=== PATIENT | female | born 1975 | race Caucasian/White ===

== ENCOUNTER → 2016-09-07 | Day surgery (SDC) | payer OTHER, BC ==
[~2016-09-07] MED LIST: CLINDAMYCIN PHOS 600 MG/4 ML VIAL ONE; KETOROLAC TROMETHAMINE 30 MG/ML (IVP) VIAL IV PUSH ONE; LACTATED RINGER'S 1000 ML INJ 1,000 ML ONE; METHYLERGONOVINE MALEATE 0.2 MG/ML VIAL ONE; MIDAZOLAM HCL 2 MG/2 ML VIAL ONE; ONDANSETRON HCL 4 MG/2 ML VIAL IV PUSH ONE; PROPOFOL 200 MG/20 ML AMP IV ONE; SODIUM CHLORIDE 0.9% SOLN 100 ML (PAB) BAG IV ONE
--- NOTE | 2016-09-08 16:16 | MP ---
cc: LEWIS ANDERSON M.D. DATE OF SURGERY 09/07/2016 PREOPERATIVE DIAGNOSIS Missed at 6 weeks gestation, request for IUD placement post procedure. PROCEDURE Dilatation and curettage with suction, placement of IUD Mirena intrauterine device. POSTOPERATIVE DIAGNOSIS Missed at 6 weeks gestation, request for IUD placement post procedure. SURGEON Lewis Anderson MD ANESTHESIA General with LMA. ESTIMATED BLOOD LOSS None. DRAINS None. OPERATIVE FINDINGS The patient had midline uterus. Uterine sounded to 8 cm. PATHOLOGY SPECIMEN Included products of conception. INDICATIONS FOR PROCEDURE Patient with followed for missed by ultrasound. The patient failed to pass products of conception naturally and elected for D&C with suction. The patient's maternal blood type is Rh positive. DESCRIPTION OF PROCEDURE The patient was taken to the operating room, under general anesthesia had an airway secured. She previously received clindamycin 600 milligrams IV. She was carefully positioned dorsolithotomy position using candy-cane stirrups with sequential placed on lower extremities for VTE prophylaxis. After she was carefully prepped and draped, a time-out was conducted and agreed by all present in the room. The cervix was easily identified and secured with a single-tooth tenaculum anteriorly. The uterine sound measured 8 centimeters. The cervix was soft. The #8 suction curette was used to evacuate the products of conception without complication. No perforation. This was confirmed by following with a handheld curette to ensure that there were no retained tissue specimens. No active bleeding was noted. After evacuation of the endometrial cavity the Mirena IUD was then easily inserted, placed at the uterine fundus and deployed without difficulty. The strings were trimmed. At the completion of the case there was no active bleeding. The patient received Methergine 0.2 mg to secure hemostasis post curettage. At the end of the case final count was correct. The patient was stable. She is taken to recovery room on room air. Lewis Anderson MD [id number] /12:42 PM /4:05 PM
== END | disposition home or self-care (01) ==
LOC: ESDC 10:34
PROVIDERS: ATTEND Obstetrics & Gynecology
DX: O02.1 Missed abortion (principal); Z30.430 Encounter for insertion of intrauterine contraceptive device
CPT/HCPCS: 00940; 01965; 58300; 59820; 88305; J1885; J2210; J2250; J2405; J3010; J7120